=== PATIENT | male | born 1970 | race Hispanic/Latino ===

== ENCOUNTER 2017-09-14 15:21 | Emergency (ER) | payer MEDICARE, MEDICAID ==
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
[2017-09-14 20:01] VITALS: BP 150/87
== END 2017-09-14 20:03 | disposition home or self-care (01) ==
LOC: ED 15:21
DX: T81.4XXA Infection following a procedure, initial encounter (principal); F17.200 Nicotine dependence, unspecified, uncomplicated
CPT/HCPCS: 99282